=== PATIENT | female | born 2000 | race Caucasian/White ===

== ENCOUNTER 2018-05-11 10:10 | Emergency (ER) | payer OTHER ==
[2018-05-11 10:34] VITALS: BP 101/66
--- NOTE | 2018-05-11 10:55 | UC ---
Throat Pain/Nasal Justino HPI - HPI Summary HPI Summary: 17-year-old female comes in to clinic today with a chief complaint of sore throat chills body aches and feeling ill since yesterday. No chest congestion no vomiting. Acetaminophen helps some with the body aches. No dysuria. - History of Current Complaint Chief Complaint: UCRespiratory Stated Complaint: BODY ACHES,SORE THROAT Time Seen by Provider: 05/11/18 10:44 Hx Last Menstrual Period: 05/02/18 Pain Intensity: 5 - Allergies/Home Medications Allergies/Adverse Reactions: Allergies Allergy/AdvReac Type Severity Reaction Status Date / Time No Known Allergies Allergy Verified 05/11/18 10:34 Home Medications: Home Medications Acetaminophen TAB* [Tylenol TAB*] 650 mg PO Q4H PRN 05/11/18 [History Confirmed 05/11/18] Norgestimate-Ethinyl Estradiol [Edw-Pn-Tobqazoi 0.18/0.215/0.25 mg-25 Mcg] 1 tab PO DAILY 05/11/18 [History Confirmed 05/11/18] PMH/Surg Hx/FS Hx/Imm Hx Previously Healthy: Yes - Surgical History Surgical History: None - Family History Known Family History: Positive: Cardiac Disease, Diabetes - Social History Alcohol Use: None Substance Use Type: None Smoking Status (MU): Never Smoked Tobacco Review of Systems All Other Systems Reviewed And Are Negative: Yes Constitutional: Positive: Fever, Chills, Other - MYALGIAS Skin: Positive: Negative Eyes: Positive: Negative ENT: Positive: Sore Throat, Nasal Discharge Respiratory: Positive: Negative Cardiovascular: Positive: Negative Gastrointestinal: Positive: Negative Genitourinary: Positive: Negative Motor: Positive: Negative Neurovascular: Positive: Negative Musculoskeletal: Positive: Negative Neurological: Positive: Negative Psychological: Positive: Negative Is Patient Immunocompromised?: No Physical Exam Triage Information Reviewed: Yes Appearance: No Pain Distress, Well-Nourished, Ill-Appearing - MILD Vital Signs: Initial Vital Signs Temp 98.5 F 05/11/18 10:30 Pulse 105 05/11/18 10:30 Resp 16 05/11/18 10:30 BP 101/66 05/11/18 10:30 Pulse Ox 99 05/11/18 10:30 Vital Signs Reviewed: Yes Eye Exam: Normal Eyes: Positive: Conjunctiva Clear ENT: Positive: Pharyngeal erythema, Nasal congestion, Nasal drainage, TMs normal Neck exam: Normal Neck: Positive: Supple Respiratory: Positive: Lungs clear, Normal breath sounds, No respiratory distress Cardiovascular: Positive: Tachycardia Musculoskeletal Exam: Normal Musculoskeletal: Positive: Strength Intact, ROM Intact Neurological Exam: Normal Neurological: Positive: Alert, Muscle Tone Normal Psychological Exam: Normal Psychological: Positive: Age Appropriate Behavior Skin Exam: Normal Throat Pain/Nasal Course/Dx - Course Course Of Treatment: DISCUSSED VIRAL VERSES BACTERIAL INFECTIONS AND THE ROLE OF ANTIBIOTIS. THE PATIENT PREFERS TO BE ON ANTIBIOTICS AT THIS TIME. - Differential Dx/Diagnosis Provider Diagnoses: PHARYNGITIS. FEVER Discharge - Sign-Out/Discharge Documenting (check all that apply): Patient Departure All imaging exams completed and their final reports reviewed: No Studies - Discharge Plan Condition: Stable Disposition: HOME Prescriptions: Amoxicillin PO (*) [Amoxicillin 875 MG (*)] 875 mg PO BID #20 tab Patient Education Materials: Pharyngitis (ED), Fever in Adults (ED) Referrals: [facility] [Provider Group] Additional Instructions: FOLLOW UP WITH [facility] IF NOT COMPLETELY IMPROVED. GET RECHECKED FOR ANY WORSENING OF YOUR CONDITION OR QUESTIONS OR CONCERNS. - Billing Disposition and Condition Condition: STABLE Disposition: Home
== END 2018-05-11 11:31 | disposition home or self-care (01) ==
LOC: UCEAST 10:10
DX: J02.9 Acute pharyngitis, unspecified (principal); M79.10 Myalgia, unspecified site; R09.89 Other specified symptoms and signs involving the circulatory and respiratory systems
CPT/HCPCS: 87651; 99202; G0463

== ENCOUNTER 2019-03-17 19:39 | Emergency (ER) | payer OTHER ==
[2019-03-17 20:16] VITALS: BP 100/63
--- NOTE | 2019-03-17 20:40 | UC ---
Syncope/New Syncope HPI - HPI Summary HPI Summary: The patient is a 18-year-old female that presents here after a syncopal episode that occurred while she was standing in the lab. This occurred this afternoon. For the past year she has had multiple episodes of near syncope and at least 3 syncopal episodes. She states that before college she had had at least 3 syncopal episodes. She states that she has always been told that her blood pressure is low. Usually she feels dizzy and has time to sit down before she becomes syncopal. She denies any palpitations or chest pain preceding these episodes. During today's episode a field research assistant caught her and lowered her to the floor. There was no seizure activity. She states that she came around after a few seconds. - History Of Current Complaint Chief Complaint: UCDizziness Stated Complaint: SYNCOPE, DIZZINESS Time Seen by Provider: 03/17/19 20:14 Hx Obtained From: Patient Hx Last Menstrual Period: 03/13/19 Onset/Duration: Sudden Onset, Other - lasted seconds Activity At Onset: Other - standing Timing: Intermittent Episode Lasting - seconds Frequency: Episodes x___ - many, Episodes Lasting ____ (in Mins/Days/Weeks/Years ) - past year Context: Witnessed Associated Head Trauma: No Pain Intensity: 0 Pain Scale Used: 0-10 Numeric Aggravating Factor(s): Other - standing Alleviating Factor(s): Position Change Associated Signs And Symptoms: Positive: Dizzy - right before epeisode, Lightheadedness. Negative: AMS, Chest Pain, Decreased Oral Intake, Diarrhea, Diaphoresis, Head Trauma (Remote), Head Trauma (Recent), Headache, Numbness, Pain, Palpitations, Seizure, Shortness Of Breath, Vomiting, Weakness - Allergies/Home Medications Allergies/Adverse Reactions: Allergies Allergy/AdvReac Type Severity Reaction Status Date / Time No Known Allergies Allergy Verified 03/17/19 19:50 PMH/Surg Hx/FS Hx/Imm Hx Previously Healthy: Yes Cardiovascular History: Other - hypotensive - Surgical History Surgical History: None - Family History Known Family History: Positive: Cardiac Disease, Diabetes, Other - mom and aunt had low blood pressure as young women Negative: Non-Contributory - Social History Alcohol Use: None Substance Use Type: None Smoking Status (MU): Never Smoked Tobacco Review of Systems All Other Systems Reviewed And Are Negative: Yes Constitutional: Positive: Negative Skin: Positive: Negative Eyes: Positive: Negative ENT: Positive: Negative Respiratory: Positive: Negative Cardiovascular: Positive: Negative Gastrointestinal: Positive: Negative Genitourinary: Positive: Negative Motor: Positive: Negative Neurovascular: Positive: Negative Musculoskeletal: Positive: Negative Neurological: Positive: Negative Psychological: Positive: Negative Physical Exam Triage Information Reviewed: Yes Appearance: Well-Appearing, No Pain Distress, Well-Nourished Vital Signs: Initial Vital Signs Temp 98.7 F 03/17/19 19:46 Pulse 80 03/17/19 19:46 Resp 18 03/17/19 19:46 BP 106/75 03/17/19 19:46 Pulse Ox 100 03/17/19 19:46 Vital Signs Reviewed: Yes Eyes: Positive: Conjunctiva Clear ENT: Positive: Hearing grossly normal, Uvula midline. Negative: Nasal congestion, Nasal drainage, Trismus, Muffled voice, Hoarse voice Neck: Positive: Supple, Nontender, No Lymphadenopathy Respiratory: Positive: Lungs clear, Normal breath sounds, No respiratory distress, No accessory muscle use Cardiovascular: Positive: RRR, No Murmur Abdomen Description: Positive: Nontender, No Organomegaly, Soft. Negative: CVA Tenderness (R), CVA Tenderness (L) Bowel Sounds: Positive: Present Musculoskeletal: Positive: ROM Intact, No Edema Neurological: Positive: Alert, Muscle Tone Normal Psychological Exam: Normal Skin Exam: Normal Syncope Course/Dx - Course Course Of Treatment: The patient declines having blood work checked here. She states she would prefer to have it drawn at [place]. - Differential Dx/Diagnosis Provider Diagnosis: Syncope Discharge ED - Sign-Out/Discharge Documenting (check all that apply): Patient Departure All imaging exams completed and their final reports reviewed: No Studies - Discharge Plan Condition: Stable Disposition: HOME Patient Education Materials: Syncope (ED), Hypotension (ED) Referrals: Gene Rios MD [Medical Doctor] - As Soon As Possible [facility] [[facility], APPLICATION, OTHER] - As Soon As Possible Additional Instructions: don't miss any meals fluids I suggest you see a triage register nurse for evaluation of your increasingly frequent episodes of near syncope and syncope I suggest blood work work To ER for new or worsening symptoms - Billing Disposition and Condition Condition: STABLE Disposition: Home
== END 2019-03-17 20:55 | disposition home or self-care (01) ==
LOC: UCEAST 19:39
DX: R55 Syncope and collapse (principal)
CPT/HCPCS: 93005; 99212; G0463

== ENCOUNTER 2019-03-24 19:19 | Emergency (ER) | payer OTHER ==
[2019-03-24 20:27] LABS: ABS Eosinophils 0.1 10^3/ul (0-0.6); ABS Monocytes 0.3 10^3/ul (0-0.8); ABS Neutrophils 3.3 10^3/ul (1.5-7.7); Eosinophil % 1.3 %; Hematocrit 39 % (35-47); Hemoglobin 13.2 g/dL (12.0-16.0); Lymphocyte % 35.3 %; Mean Corpuscular HGB Conc 34 g/dL (31-36); Mean Corpuscular Hemoglobin 27 pg (27-31); Mean Corpuscular Volume 81 fL (80-97); Mean Platelet Volume 8.7 fL (7.4-10.4); Nucleated Red Blood Cells % 0.1; Platelet Count 164 10^3/uL (150-450); Red Blood Count 4.81 10^6 /uL (3.70-4.87); Red Cell Distribution Width 14 % (10-15); White Blood Count 5.8 10^3/uL (3.5-10.8)
[2019-03-24 20:46] LABS: ALT 8 U/L (7-52); AST 14 U/L (13-39); Albumin 3.9 g/dL (3.2-5.2); Albumin/Globulin Ratio 1.3 (1-3); Alkaline Phosphatase 41 U/L (34-104); Anion Gap 5 mmol/L (2-11); BUN/Creatinine Ratio 12.6 (8-20); Blood Urea Nitrogen 12 mg/dL (6-24); CO2 Carbon Dioxide 27 mmol/L (22-32); Chloride 104 mmol/L (101-111); EGFR African American 90.7 (>60); Glucose 133 mg/dL (70-100); Potassium 3.5 mmol/L (3.5-5.0); Sodium 136 mmol/L (135-145); Total Protein 6.9 g/dL (6.4-8.9)
[2019-03-24 20:53] LABS: HCG Pregnancy < 0.60 mIU/mL
[2019-03-24 21:07] LABS: Alcohol < 10 mg/dL (<10)
[2019-03-24 21:22] LABS: TSH (Thyroid Stimulating Horm) 1.63 mcIU/mL (0.34-5.60)
--- NOTE | 2019-03-24 23:07 | ED ---
Headache - HPI Summary HPI Summary: The patient is a 18 y/o F presenting to [facility] with a chief complaint of intermittent episodes of right parietal headaches for a week lasting for a few minutes at a time but worsening with constant episode tonight lasting for a few headaches. She reports hx of dizziness and syncopal events over the last few years accompanied by headaches, but shes had about 5 episodes occurring in the last few weeks, which is worse than shes experienced before. One week ago, she had a syncopal event, with noted poor sleep the night prior, but she has been experiencing headaches since then. Her headaches are described as a throbbing pain located in the right parietal. There is aggravation of the headaches with sitting to standing position. The syncopal events have been noted to be alleviated by activity. She additionally c/o nausea. She denies any visual changes, vomiting, pain or swelling in the legs. Currently, her symptoms are rated 3/10 in severity, which has improved since onset. There was no relief with Tylenol. She has seen her PCP and physicians at [facility] and [facility], but she hasnt seen a neurologist or marble setter helper. She hasnt had any recent sleep changes, but she does note that she gets SOB with exertion. Menstrual cycles are regular without menorrhagia. PMHx: syncope, migraine. FHx: cardiac disease, DM, hypotension. Nonsmoker, no EtOH, no substance use. Medications reviewed. Allergies noted. - History Of Current Complaint Chief Complaint: EDHeadache Stated Complaint: HEADACHES, PASSING OUT PER PT Time Seen by Provider: 03/24/19 22:57 Hx Obtained From: Patient Hx Last Menstrual Period: 03/13/19 Onset/Duration: Gradual Onset, Started days ago - one week, Still Present, Worse Since - today Initially Headache Was: Initial Pain Scale(0-10)= - 6 Currently Pain Is: Current Pain Scale(0-10)= - 3 Timing: Hours Character: Throbbing Location of Headache: Parietal - right Aggravating Factor: Other - movement (headache) Allevating Factors: Other (Noted In Comments) - exertion (dizziness, syncope) Associated Signs And Symptoms: Dizziness, Nausea, Other (Noted In Comments) - Negative: vomiting, visual changes, myalgia, edema - Allergies/Home Medications Allergies/Adverse Reactions: Allergies Allergy/AdvReac Type Severity Reaction Status Date / Time No Known Allergies Allergy Verified 03/24/19 19:32 PMH/Surg Hx/FS Hx/Imm Hx Endocrine/Hematology History: Denies: Hx Diabetes, Hx Thyroid Disease Cardiovascular History: Reports: Hx Syncope Denies: Hx Hypertension Respiratory History: Denies: Hx Asthma, Hx Chronic Obstructive Pulmonary Disease (COPD) GI History: Denies: Hx Ulcer Neurological History: Reports: Hx Migraine - Surgical History Surgical History: None Surgery Procedure, Year, and Place: none Infectious Disease History: No Infectious Disease History: Denies: Hx Hepatitis, Hx Human Immunodeficiency Virus (HIV), Traveled Outside the [place] in Last 30 Days - Family History Known Family History: Positive: Cardiac Disease, Diabetes, Other - mom and aunt had low blood pressure as young women Negative: Non-Contributory - Social History Alcohol Use: None Hx Substance Use: No Substance Use Type: Reports: None Hx Tobacco Use: No Smoking Status (MU): Never Smoked Tobacco Review of Systems Positive: Other - Negative: visual changes. Positive: Nausea. Negative: Vomiting Negative: Myalgia, Edema Neurological: Other - dizziness Positive: Headache - right parietal, Syncope All Other Systems Reviewed And Are Negative: Yes Physical Exam - Summary Physical Exam Summary: Appearance: Well-appearing, Well-nourished, lying in bed comfortably Skin: Warm, dry, no obvious rash Eyes: sclera anicteric, no conjunctival pallor ENT: mucous membranes moist, pharynx appears normal Neck: Supple, nontender Respiratory: Clear to auscultation, no signs of respiratory distress Cardiovascular: Normal S1, S2. No murmurs. Normal distal pulses in tibial and radial bilaterally. Abdomen: Soft, nontender, normal active bowel sounds present Musculoskeletal: Normal, Strength/ROM Intact Neurological: A&Ox3, awake and alert, mentation is normal, speech is fluent and appropriate Psychiatric: affect is normal, does not appear anxious or depressed Triage Information Reviewed: Yes Vital Signs On Initial Exam: Initial Vitals Temp Pulse Resp BP Pulse Ox 98.5 F 89 15 106/65 98 03/24/19 19:28 03/24/19 19:28 03/24/19 19:28 03/24/19 19:28 03/24/19 19:28 Vital Signs Reviewed: Yes Diagnostics - Vital Signs Vital Signs Temp Pulse Resp BP Pulse Ox 03/24/19 22:20 98.8 F 67 16 102/75 99 03/24/19 19:28 98.5 F 89 15 106/65 98 - Laboratory Lab Results: Lab Results 03/24/19 03/24/19 Range/Units 20:09 20:09 WBC 5.8 (3.5-10.8) 10^3/uL RBC 4.81 (3.70-4.87) 10^6 /uL Hgb 13.2 (12.0-16.0) g/dL Hct 39 (35-47) % MCV 81 (80-97) fL MCH 27 (27-31) pg MCHC 34 (31-36) g/dL RDW 14 (10-15) % Plt Count 164 (150-450) 10^3/uL MPV 8.7 (7.4-10.4) fL Neut % (Auto) 57.3 % Lymph % (Auto) 35.3 % [place] % (Auto) 5.9 % Eos % (Auto) 1.3 % Baso % (Auto) 0.2 % Absolute Neuts (auto) 3.3 (1.5-7.7) 10^3/ul Absolute Lymphs (auto) 2.0 (1.0-4.8) 10^3/ul Absolute Monos (auto) 0.3 (0-0.8) 10^3/ul Absolute Eos (auto) 0.1 (0-0.6) 10^3/ul Absolute Basos (auto) 0.0 (0-0.2) 10^3/ul Absolute Nucleated RBC 0.0 10^3/ul Nucleated RBC % 0.1 Sodium 136 (135-145) mmol/L Potassium 3.5 (3.5-5.0) mmol/L Chloride 104 (101-111) mmol/L Carbon Dioxide 27 (22-32) mmol/L Anion Gap 5 (2-11) mmol/L BUN 12 (6-24) mg/dL Creatinine 0.95 (0.51-0.95) mg/dL Est GFR ( Amer) 90.7 (>60) Est GFR (Non-Af Amer) 75.0 (>60) BUN/Creatinine Ratio 12.6 (8-20) Glucose 133 H (70-100) mg/dL Calcium 9.0 (8.6-10.3) mg/dL Total Bilirubin 0.40 (0.2-1.0) mg/dL AST 14 (13-39) U/L ALT 8 (7-52) U/L Alkaline Phosphatase 41 (34-104) U/L Total Protein 6.9 (6.4-8.9) g/dL Albumin 3.9 (3.2-5.2) g/dL Globulin 3.0 (2-4) g/dL Albumin/Globulin Ratio 1.3 (1-3) TSH 1.63 (0.34-5.60) mcIU/mL Beta HCG, Quant < 0.60 mIU/mL Serum Alcohol < 10 (<10) mg/dL Result Diagrams: 03/24/19 20:09 03/24/19 20:09 Lab Statement: Any lab studies that have been ordered have been reviewed, and results considered in the medical decision making process. - EKG 2054 Cardiac Rate: NL - 68 BPM EKG Rhythm: Sinus Rhythm Summary of EKG Findings: NSR at 68 BPM, P waves, QRS complex, and T waves are within normal limits, T waves and intervals are normal, no ischemic changes. This is a normal EKG. ED physician has reviewed and interpreted this EKG. Headache Course/Dx - Course Course Of Treatment: Pt is a 18 y/o F hx of syncopal events, with cc of intermittent throbbing headaches in the right parietal region for the last week following a syncope, which she notes have been aggravated by position. FHx: hypotension. Upon physical exam, the pt exhibits no acute abnormalities. Blood work reveals glucose of 133 but is otherwise unremarkable. UA obtained and reveals trace ketones but is otherwise normal. Toxicology report with serum alcohol of <10. EKG at 2054 reveals NSR at 68 BPM without any ischemic changes. We discussed all results and plan for discharge with cardiology follow up and rx for Florinef. She understands and agrees with this plan. Dx of syncope and headache. - Diagnoses Provider Diagnoses: Syncope, Headache Discharge ED - Sign-Out/Discharge Documenting (check all that apply): Patient Departure - Patient will be discharged home. Patient Received Moderate/Deep Sedation with Procedure: No - Discharge Plan Condition: Good Disposition: HOME Prescriptions: Fludrocortisone Acetate TAB* [Florinef TAB*] 0.1 mg PO DAILY #30 tab Patient Education Materials: Syncope (ED) Referrals: Gene Rios MD [Medical Doctor] - Additional Instructions: I think the physician that would be most helpful in diagnosing your problem with fainting would be a marble setter helper, so please call the office listed to make an appointment. In the meantime I have prescribed a trial of florinef. In conjunction with making sure you get plenty of sodium/salt in your diet this may provide some help. It is taken once daily but can be increased if needed. - Billing Disposition and Condition Condition: GOOD Disposition: Home - Attestation Statements Document Initiated by Coyb: Yes Documenting Scribe: Belkys Arroyo Provider For Whom Coby is Documenting (Include Credential): Dr. Fareed Lancaster MD Scribe Attestation: I, moses Wooded for Dr. Fareed Lancaster MD on 03/28/19 at 1851. Scribe Documentation Reviewed: Yes Provider Attestation: The documentation as recorded by the Belkys colbert accurately reflects the service I personally performed and the decisions made by me, Dr. Fareed Lancaster MD Status of Scribe Document: Viewed
[2019-03-24 23:34] VITALS: BP 101/71
[2019-03-24 23:45] LABS: Urine Appearance Cloudy; Urine Bilirubin Negative (Negative); Urine Blood Negative (Negative); Urine Color Yellow; Urine Glucose Negative (Negative); Urine Ketones Trace (Negative); Urine Nitrite Negative (Negative); Urine Protein Negative (Negative); Urine Specific Gravity 1.026 (1.010-1.030); Urine Urobilinogen Negative (Negative)
== END 2019-03-24 23:33 | disposition home or self-care (01) ==
LOC: ED 19:19
DX: R51 Headache (principal); R55 Syncope and collapse
CPT/HCPCS: 36415; 80053; 80320; 81003; 84443; 84702; 85025; 93005; 99282; G0480